=== PATIENT | male | born 1965 | race Caucasian/White ===

== ENCOUNTER 2016-10-15 10:55 | Emergency (ER) | payer SELFPAY ==
[2016-10-15 11:00] VITALS: BP 156/101; PULSE 103; TEMP 98.4; BMI 26.4
--- NOTE | 2016-10-15 11:38 | PDOC ---
History of Present Illness - General Chief Complaint: Toothache Stated Complaint: SWOLLEN FACE, EYE REDNESS Time Seen by Provider: 10/15/16 11:33 History Source: Patient Exam Limitations: No Limitations - History of Present Illness Initial Comments: 10/15/16 13:49 Chief complaint: Right eye tearing painful and bleeding around gum right upper tooth 10/15/16 13:50 History of present illness: Patient is a 51-year-old male with a history of an AK 2012, and a gastric ulcer here today complaining of intermittent bleeding around gum of his right central incisor for the last 4 days tenderness around gum. Patient also noticed slight facial's swelling on right side today. Patient denies any fever. Gum is not bleeding presently. Patient also reports having redness of his right eye with discomfort and tearing with photophobia for the last 4 days. Patient wears contact lenses does not have contact in his right eye presently. Patient denies getting anything in his eye or rubbing his right eye. Patient denies any visual changes. Timing/Duration: getting worse Modifying Factors: worse with: immobilization Associated Symptoms: reports: other (RIGHT EYE TEARING, PHOTOPHOBIA, 4 DAYS, PAINFUL, RT UPPER GUM BLEEDING WITH TENDERNESS TO AREA) Past History - Past Medical History Allergies/Adverse Reactions: Allergies Allergy/AdvReac Type Severity Reaction Status Date / Time No Known Allergies Allergy Verified 10/15/16 11:00 Home Medications: Ambulatory Orders Aspirin Coated [Ecotrin -] 81 mg PO DAILY #30 tablet.ec 07/20/14 Mag Carb/Al Hydrox/Alginic AC [Gaviscon Liquid] 30 mg PO PRN PRN #1 oral.susp Ranitidine [Zantac -] 150 mg PO BID #0 tablet 10/26/14 Penicillin V Potassium [Pen Vee K -] 500 mg PO QID #28 tablet 10/15/16 Tobramycin 0.3% Ophth Soln [Tobrex Ophthalmic Solution -] 2 drop OD Q6HPO #1 drops 10/15/16 Anemia: No Asthma: No Cancer: No Cardiac Disorders: Yes ("heart attack" 2012) CVA: No COPD: No CHF: No Dementia: No Diabetes: No GI Disorders: Yes (GASTRITIS/DUODENITIS BLEED 07/31) Disorders: No HTN: No Hypercholesterolemia: No Liver Disease: No Suicide Attempt (Hx): No Seizures: No Thyroid Disease: No - Surgical History Abdominal Surgery: No Appendectomy: No Cardiac Surgery: Yes (STENT PLACE 05/01) Cholecystectomy: No Lung Surgery: No Neurologic Surgery: No Orthopedic Surgery: No - Immunization History Td Vaccination: Yes Immunization Up to Date: Yes - Psycho/Social/Smoking Cessation Hx Anxiety: No Suicidal Ideation: No Smoking Status: Yes Smoking History: Never smoked Have you smoked in the past 12 months: No Number of Cigarettes Smoked Daily: 0 If you are a former smoker, when did you quit?: 2012 'Breaking Loose' booklet given: 05/10/12 Hx Alcohol Use: Yes (SOCIAL) Drug/Substance Use Hx: No Substance Use Type: None Hx Substance Use Treatment: No Review of Systems - Review of Systems Able to Perform ROS?: Yes HEENTM: Yes: Eye Pain (RT. EYE ), Tearing, Other (BLEEDING RT UPPER GUM RT. CENTRAL INCISOR WITH TENDERNESS OF AREA, ). No: Blurred Vision, Recent change in vision, Double Vision Respiratory: No: Symptoms reported Cardiac (ROS): No: Symptoms Reported ABD/GI: No: Symptoms Reported Musculoskeletal: No: Symptoms Reported Integumentary: Yes: Other (SLIGHT SWELLING RT. MAXILLA ) Neurological: No: Symptoms reported *Physical Exam - Vital Signs Last Vital Signs Temp Pulse Resp BP Pulse Ox 98.4 F 103 H 20 156/101 95 10/15/16 10:56 10/15/16 10:56 10/15/16 10:56 10/15/16 10:56 10/15/16 10:56 - Physical Exam General Appearance: Yes: Appropriately Dressed HEENT: positive: EOMI, [place], TMs Normal, Other (RT. UPPER CENTRAL INCISOR TENDERNESS WITH ERYTHEMA/SLIGHT EDEMA). negative: Pharyngeal Erythema, Tonsillar Exudate, Tonsillar Erythema, Nasal Congestion, Rhinorrhea, Sinus Tenderness, Orbits Neck: negative: Lymphadenopathy (R), Lymphadenopathy (L) Respiratory/Chest: positive: Lungs Clear, Normal Breath Sounds. 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 Patient also noticed slight facial's swelling on right side today. Patient denies any fever. Gum is not bleeding presently. Patient also reports having redness of his right eye with discomfort and tearing with photophobia for the last 4 days. Patient wears contact lenses does not have contact in his right eye presently. Patient denies getting anything in his eye or rubbing his right eye. Patient denies any visual changes. right eye corneal abrasion right gum abscess PLAN: PEN VK 500 MG QID FOR 7 DAYS TOBRAMYCIN 0.3% 2 drops rt. eye q 6 hr for 5 days had to be changed to Gentamycin 0.3% andrew 2 drops six times daily for 5 days due to tobramycin on back order pt. will follow up with his opthomoloogist Dr. Gurwinder Morales tomorrow for further eval and his dentist *DC/Admit/Observation/Transfer Diagnosis at time of Disposition: Gum abscess Corneal abrasion, right Qualifiers: Encounter type: initial encounter Qualified Code(s): S05.01XA - Injury of conjunctiva and corneal abrasion without foreign body, right eye, initial encounter - Discharge Dispostion Disposition: HOME Condition at time of disposition: Stable - Prescriptions Prescriptions: Penicillin V Potassium [Pen Vee K -] 500 mg PO QID #28 tablet Tobramycin 0.3% Ophth Soln [Tobrex Ophthalmic Solution -] 2 drop OD Q6HPO #1 drops - Patient Instructions Additional Instructions: FOLLOW UP TOMORROW WITH YOUR OPTHOMOLOGIST AND YOUR DENTIST FOR FURTHER EVALUATION RETURN TO EMERGENCY ROOM IF SYMPTOMS WORSEN OR NEW SYMPTOMS DEVELOP Eat only soft foods for next few days patient voiced understanding of discharge instructions and all questions were answered
[2016-10-15] MEDS ORDERED: TETRACAINE 0.5% OPHTH SOLN 2 ML BOTTLE ONE (12:05)
== END 2016-10-15 13:45 | disposition home or self-care (01) ==
LOC: JERFT 10:55
DX: K05.219 Aggressive periodontitis, localized, unspecified severity (principal); S05.01XA Injury of conjunctiva and corneal abrasion without foreign body, right eye, initial encounter; X58.XXXA Exposure to other specified factors, initial encounter; Y93.89 Activity, other specified; Y92.89 Other specified places as the place of occurrence of the external cause; I25.2 Old myocardial infarction; Z87.19 Personal history of other diseases of the digestive system
CPT/HCPCS: 99281-25

== ENCOUNTER 2018-07-12 06:44 | Inpatient (IN) | payer SELFPAY ==
[2018-07-12 07:13] VITALS: BMI 26.0
--- NOTE | 2018-07-12 07:52 | PDOC ---
History of Present Illness - General Chief Complaint: Pain, Acute Stated Complaint: PAIN,HERNIA Time Seen by Provider: 07/12/18 07:51 - History of Present Illness Initial Comments: 53yo M with PMH of CO s/p stent in 2012, GI bleed d/t erosive gastritis/ duodenitis in 2014 presenting with left groin pain and melena. Patient states he has had black stools since last Sunday. He only takes a baby aspirin at home. No BRBPR or hematemesis. No history of abdominal surgeries. Patient endorses heavy drinking history in the past, but only drinks 1-2 alcoholic drinks per day currently. He has not had a colonoscopy or endoscopy since he was discharged in 2014. Patient first noticed a left groin hernia last summer. He was in [facility] for travel around that time and was evaluated by a physician there. Recommended for surgery, but he did not follow up. Patient's hernia will expand intermittently, especially when he is standing. He is usually able to reduce the hernia on his own, but was unsuccessful this morning. It has been present since yesterday and he is endorsing 8/10 intermittent pain associated with it. He has taken no more than two tablets of advil or alleve at home for the pain. No nausea or vomiting. Last bowel movement was yesterday and was a black formed stool. No fevers, chills, chest pain, or shortness of breath. PCP: none Cardio: Dr. Alcantara (spelling per the patient) GI: does not remember Past History - Past Medical History Allergies/Adverse Reactions: Allergies Allergy/AdvReac Type Severity Reaction Status Date / Time No Known Allergies Allergy Verified 07/12/18 07:09 Home Medications: Ambulatory Orders Aspirin Coated [Ecotrin -] 81 mg PO DAILY #30 tablet.ec 07/20/14 Anemia: No Asthma: No Cancer: No Cardiac Disorders: Yes ("heart attack" 2012) CVA: No COPD: No CHF: No Dementia: No Diabetes: No GI Disorders: Yes (GASTRITIS/DUODENITIS BLEED 07/31) Disorders: No HTN: No Hypercholesterolemia: No Liver Disease: No Seizures: No Thyroid Disease: No - Surgical History Abdominal Surgery: No Appendectomy: No Cardiac Surgery: Yes (STENT PLACE 05/01) Cholecystectomy: No Lung Surgery: No Neurologic Surgery: No Orthopedic Surgery: No - Immunization History Td Vaccination: Yes Immunization Up to Date: No - Suicide/Smoking/Psychosocial Hx Smoking Status: Yes Smoking History: Former smoker Have you smoked in the past 12 months: No Number of Cigarettes Smoked Daily: 0 If you are a former smoker, when did you quit?: 2012 Information on smoking cessation initiated: No 'Breaking Loose' booklet given: 05/10/12 Hx Alcohol Use: No Drug/Substance Use Hx: No Substance Use Type: None Hx Substance Use Treatment: No Review of Systems - Review of Systems Comments:: Constitutional: no fever, no chills HEENT: no throat pain, no dysphagia Cardiovascular: no chest pain, no palpitations Respiratory: no cough, no shortness of breath Gastrointestinal: +abdominal pain, +melena Genitourinary: no dysuria, no frequency Musculoskeletal: no myalgia, no arthralgia Skin: no rash, no itching Neurologic: no headache, no weakness *Physical Exam - Vital Signs Last Vital Signs Temp Pulse Resp BP Pulse Ox 98.1 F 91 H 18 157/90 100 07/12/18 07:10 07/12/18 07:10 07/12/18 07:10 07/12/18 07:10 07/12/18 07:10 - Physical Exam Comments: General: Awake, alert, and fully oriented, in no acute distress Head: No signs of trauma Eyes: EOMI, sclera anicteric ENT: Moist mucus membranes Neck: Normal ROM, supple Lungs: Lungs clear, Normal breath sounds Cardio: Regular rhythm, S1 and S2 present Abdomen: Soft, nontender. No guarding, no rebound, no masses Left inguinal hernia with positive bowel sounds, unable to reduce Extremities: Normal range of motion, Distal pulses present SKIN: Warm, Dry, normal turgor Neurologic: Cranial nerves II through XII grossly intact. Normal speech Rectal: The skin is without erythema or induration. Skin tag present. No external hemorrhoids, fissures, warts, or discharge. Sphincter tone normal. There are no masses palpated on digital exam. ED Treatment Course - LABORATORY CBC & Chemistry Diagram: 07/12/18 15:00 07/12/18 08:17 Medical Decision Making - Medical Decision Making 53yo M with PMH of CO s/p stent in 2012, GI bleed d/t erosive gastritis/ duodenitis in 2014 presenting with left groin pain and melena. DDX including but not limited to GI bleed- upper vs lower, incarcerated hernia, reducible hernia, SBO Patient declining pain medicine FOBT positive Protonix drip and fluids ordered CBC WBC 3.4 K/mm3 (4.0-10.0) L 07/12/18 08:17 RBC 3.09 M/mm3 (4.00-5.60) L 07/12/18 08:17 Hgb 11.0 GM/dL (11.7-16.9) L 07/12/18 08:17 Hct 31.7 % (35.4-49) L D 07/12/18 08:17 MCV 102.6 fl (80-96) H 07/12/18 08:17 MCH 35.5 pg (25.7-33.7) H D 07/12/18 08:17 MCHC 34.6 g/dl (32.0-35.9) 07/12/18 08:17 RDW 13.1 % (11.9-15.9) D 07/12/18 08:17 Plt Count 129 K/MM3 (134-434) L D 07/12/18 08:17 MPV 7.3 fl (7.5-11.1) L D 07/12/18 08:17 Absolute Neuts (auto) 2.3 K/mm3 (1.5-8.0) 07/12/18 08:17 Neutrophils % 68.4 % (42.8-82.8) 07/12/18 08:17 Lymphocytes % 14.6 % (8-40) 07/12/18 08:17 Monocytes % 15.3 % (3.8-10.2) H 07/12/18 08:17 Eosinophils % 0.6 % (0-4.5) D 07/12/18 08:17 Basophils % 1.1 % (0-2.0) 07/12/18 08:17 Nucleated RBC % 0 % (0-0) 07/12/18 08:17 Hgb=11.0, however, previous values are from years ago. Unsure what is current baseline No leukocytosis CMP Sodium 136 mmol/L (136-145) 07/12/18 08:17 Potassium 4.6 mmol/L (3.5-5.1) 07/12/18 08:17 Chloride 101 mmol/L (98-107) 07/12/18 08:17 Carbon Dioxide 30 mmol/L (21-32) 07/12/18 08:17 Anion Gap 6 MMOL/L (8-16) L 07/12/18 08:17 BUN 8 mg/dL (7-18) 07/12/18 08:17 Creatinine 0.5 mg/dL (0.55-1.3) L 07/12/18 08:17 Creat Clearance w eGFR 173.94 (>60) 07/12/18 08:17 Random Glucose 104 mg/dL (74-106) 07/12/18 08:17 Calcium 8.9 mg/dL (8.5-10.1) 07/12/18 08:17 Total Bilirubin 1.5 mg/dL (0.2-1) H 07/12/18 08:17 AST 236 U/L (15-37) H 07/12/18 08:17 ALT 108 U/L (13-61) H 07/12/18 08:17 Alkaline Phosphatase 186 U/L (45-117) H 07/12/18 08:17 Troponin I < 0.02 ng/ml (0.00-0.05) 07/12/18 08:17 Total Protein 6.9 g/dl (6.4-8.2) 07/12/18 08:17 Albumin 3.2 g/dl (3.4-5.0) L 07/12/18 08:17 Lipase 441 U/L (73-393) H 07/12/18 08:17 Elevated liver enzymes Lipase elevated, but not >3xULN Tpn undetectable EKG: rate 73, QTc 427, NSR CTAP: Sequential axial images were obtained from the domes of the diaphragms through the symphysis pubis following the administration of intravenous contrast material. The lung bases are clear. The liver is normal in size. It is hypodense in texture consistent with diffuse fatty infiltration. No mass lesions identified within the liver. The spleen is enlarged measuring 15 cm in craniocaudad dimension. The pancreas, adrenal glands and kidneys demonstrate no significant abnormalities. The gallbladder is contracted. No calculi are identified. There is no evidence of intra-abdominal or retroperitoneal lymphadenopathy or fluid collections. There is no evidence of pneumoperitoneum, bowel obstruction or intra-abdominal abscess. There is no CT evidence of acute appendicitis or diverticulitis. Examination of the pelvis demonstrates no evidence of pelvic masses, fluid collections or lymphadenopathy. There is a left inguinal hernia that does contain a portion of the sigmoid colon. There is no evidence of bowel obstruction related to the hernia. The urinary bladder is somewhat thick-walled which may be accentuated by under filling. The prostate gland is not significantly enlarged. There is no evidence of acute bony pathology. IMPRESSION: 1. Diffuse fatty infiltration of liver. 2. Mild thyromegaly. 3. Left inguinal hernia containing a nonobstructed portion of the sigmoid colon. 4. No acute pathology within the abdomen or pelvis. Please see above discussion. Patient reports reducing his hernia. On repeat exam, hernia is less pronounced. Plan for admission for GI bleed 07/12/18 11:[address] Whipple who accepted patient for admission. Pending admitting physician's name. 07/12/18 12:[address] Pena. Order placed. *DC/Admit/Observation/Transfer Diagnosis at time of Disposition: GI bleed Qualifiers: GI bleed type/associated pathology: unspecified gastrointestinal hemorrhage type Qualified Code(s): K92.2 - Gastrointestinal hemorrhage, unspecified - Discharge Dispostion Condition at time of disposition: Guarded Decision to Admit order: Yes - Referrals - Patient Instructions - Post Discharge Activity
--- NOTE | 2018-07-12 08:26 | PDOC ---
Attending Attestation - Resident Resident Name: Jessica Colon - ED Attending Attestation I have performed the following: I have examined & evaluated the patient, The case was reviewed & discussed with the resident, I agree w/resident's findings & plan, Exceptions are as noted - HPI HPI: 53 yo M history AR s/p stents, prior GIB, EtOH use presents with 6 days of black stools. Denies pepto/iron supplement use. He also notes that his hernia is painful today. He states that usually he can push it back in himself, but today he had difficulty. He is uncertain how long it has been out. Able to defecate and pass gas. Denies abd pain. - Physicial Exam PE: GENERAL: Awake, alert, and fully oriented, in no acute distress HEAD: No signs of trauma EYES: PERRLA, EOMI, sclera anicteric, conjunctiva clear ENT: Auricles normal inspection, hearing grossly normal, nares patent, oropharynx clear without exudates. Moist mucosa NECK: Normal ROM, supple, no lymphadenopathy, JVD, or masses LUNGS: Breath sounds equal, clear to auscultation bilaterally. No wheezes, and no crackles HEART: Regular rate and rhythm, normal S1 and S2, no murmurs, rubs or gallops ABDOMEN: Soft, nontender, normoactive bowel sounds. No guarding, no rebound. No masses EXTREMITIES: Normal range of motion, no edema. No clubbing or cyanosis. No cords, erythema, or tenderness NEUROLOGICAL: Cranial nerves II through XII grossly intact. Normal speech, normal gait. Motor and sensation intact SKIN: Warm, Dry, normal turgor, no rashes or lesions noted. : +Large L inguinal hernia, not easily reducible due to pain. - Medical Decision Making Will treat and admit if guaiac is positive. Will CT the hernia to r/o entrapment as it is unclear how long it has been out and it is difficult to reduce. Will also give analgesia. If hernia is not entrapped, will attempt to reduce after analgesia in ED.
[2018-07-12 09:17] LABS: BASO % 1.1 % (0-2.0); EOS % 0.6 % (0-4.5); HEMATOCRIT 31.7 % (35.4-49); LYMPH % 14.6 % (8-40); MCH 35.5 pg (25.7-33.7); MCHC 34.6 g/dl (32.0-35.9); MEAN CELL VOLUME 102.6 fl (80-96); MEAN PLT VOLUME 7.3 fl (7.5-11.1); MONO % 15.3 % (3.8-10.2); NEUT % 68.4 % (42.8-82.8); PLATELET COUNT 129 K/MM3 (134-434); RBC 3.09 M/mm3 (4.00-5.60); RDW 13.1 % (11.9-15.9); WHITE BLOOD COUNT 3.4 K/mm3 (4.0-10.0)
[2018-07-12 09:34] LABS: INR 1.1 (0.83-1.09)
[2018-07-12 09:37] LABS: ACTIVATED PTT 33.5 SECONDS (25.2-36.5)
[2018-07-12 09:49] LABS: ALBUMIN 3.2 g/dl (3.4-5.0); ALK PHOS 186 U/L (45-117); ANION GAP 6 MMOL/L (8-16); BILIRUBIN,TOTAL 1.5 mg/dL (0.2-1); BLOOD UREA NITROGEN 8 mg/dL (7-18); CALCIUM 8.9 mg/dL (8.5-10.1); CHLORIDE 101 mmol/L (98-107); CO2 30 mmol/L (21-32); CREATININE 0.5 mg/dL (0.55-1.3); GLUCOSE,RANDOM 104 mg/dL (74-106); LIPASE 441 U/L (73-393); POTASSIUM 4.6 mmol/L (3.5-5.1); SGOT/AST 236 U/L (15-37); SGPT/ALT 108 U/L (13-61); SODIUM 136 mmol/L (136-145); TOT PROT 6.9 g/dl (6.4-8.2)
[2018-07-12] MEDS ORDERED: SODIUM CHLORIDE 1,000 ML IV STA (10:09)
[2018-07-12] MEDS ORDERED: PANTOPRAZOLE SODIUM 80 MG in SODIUM CHLORIDE 100 ML IVPB SCH (10:15)
[2018-07-12] MEDS ORDERED: PANTOPRAZOLE SODIUM 40 MG VIAL ONE (10:21)
[2018-07-12] MEDS ORDERED: FOLIC ACID 1 MG TABLET (FP) PO SCH (13:00)
--- NOTE | 2018-07-12 13:11 | HP ---
CHIEF COMPLAINT: Melena; lower abdominal pain PCP: Brian Painter Maintenance: Dr. Alcantara GI: (seen prior by Dr. Rueda and Dr. Mcdonald) HISTORY OF PRESENT ILLNESS: 53yo M with h/o CAD s/p PCI stenting, and prior GI bleed who presents today for LLQ abdominal pain and dark stools. Pt reports he's been suffering from dark stools since Sunday, however the reason he came in today was that he developed LLQ pain after he was unable to reduce his hernia. Normally, he is able to freely reduce his hernia and does not have pain associated with it. He states that within the past week he had an episode of sudden sharp pain which resolved, however today he noticed the pain once more and he could not reduce his hernia. Currently, pt's hernia is now freely reducible as he was able to reduce it right before his CT scan in the ER. His darkened stool has persisted without any alexander hematochezia or any blood upon wiping. Pt reports his stools have been normal caliber and quality without any episodes of constipation. He admits to continued alcohol use, however he reports his drinking has "lightened up" to only 1-2 beers daily. Pt denies any Pepto-Bismol use and only takes ASA 81mg daily for his coronary stent. Pt denies any headaches, lightheadedness, dizziness, pallor, clouding of sensation, shortness of breath, chest pain/ discomfort, palpitations, diarrhea, constipation, f/c/n/v, dysuria, hematuria, polyuria, prior bleeding disorders, prior hypercoaguability disorders, and AC use. Of note, in 2014, pt received endoscopy which revealed gastropathy and esophageal varices without any intervention at that time for his melena. Recent Travel: Denies PAST MEDICAL HISTORY: CAD s/p PCI Prior GI hemorrhage (2014; resolved without intervention; esophageal varices and erosive gastritis noted) PAST SURGICAL HISTORY: PCI coronary intervention Social History: Smoking: Denies Alcohol: previously 12 beers per day; currently 1-2 beers daily (for past 3 years) Drugs: Denies Lives at home with girlfriend Family History: Allergies No Known Allergies Allergy (Verified 07/12/18 07:09) HOME MEDICATIONS: Home Medications Medication Instructions Recorded Aspirin Coated [Ecotrin -] 81 mg PO DAILY #30 tablet.ec 07/20/14 REVIEW OF SYSTEMS As per HPI PHYSICAL EXAMINATION Vital Signs - 24 hr 07/12/18 07:10 Temperature 98.1 F Pulse Rate 91 H Respiratory 18 Rate Blood Pressure 157/90 O2 Sat by Pulse 100 Oximetry (%) GENERAL: NAD, awake, alert, and fully oriented HEENT: NC/AT, EOMI, DEREK, no scleral icterus noted, no conjunctival or mucosal pallor, MMM NECK: No JVD, no thyromegaly appreciated on exam, no thryoid nodules appreciated LUNGS: CTA bilaterally. No wheezes, and no crackles. No accessory muscle use. HEART: RRR, normal S1 and S2 without murmur appreciated ABDOMEN: Soft, nondistended, no caput medusa noted, no overlying skin changes, normoactive BS, TTP overlying L sided inguinal ligament only, hepatomegaly 1-2 fingerwidth below ribs, no splenomegaly appreciated, L inguinal hernia noted with reproducibility and minimal pain. No asterixis RECTAL: Internal hemorrhoids noted w/o external masses, soft darkened stool, prostate smooth, no alexander blood noted EXTREMITIES: 2+ DP pulses, No calf tenderness. No peripheral edema. PSYCHIATRIC: Cooperative. Good eye contact. Appropriate mood and affect. SKIN: Warm, dry, no rashes or lesions noted Laboratory Results 07/12/18 07/12/18 07/12/18 08:17 08:17 08:17 WBC 3.4 L RBC 3.09 L Hgb 11.0 L Hct 31.7 L D MCV 102.6 H MCH 35.5 H D MCHC 34.6 RDW 13.1 D Plt Count 129 L D MPV 7.3 L D Absolute Neuts (auto) 2.3 Neutrophils % 68.4 Lymphocytes % 14.6 Monocytes % 15.3 H Eosinophils % 0.6 D Basophils % 1.1 Nucleated RBC % 0 PT with INR 13.00 INR 1.10 H PTT (Actin FS) 33.5 Sodium Potassium Chloride Carbon Dioxide Anion Gap BUN Creatinine Creat Clearance w eGFR Random Glucose Calcium Total Bilirubin AST ALT Alkaline Phosphatase Troponin I Total Protein Albumin Lipase Stool Occult Blood Blood Type O POSITIVE Antibody Screen Negative 07/12/18 07/12/18 08:17 08:17 WBC RBC Hgb Hct MCV MCH MCHC RDW Plt Count MPV Absolute Neuts (auto) Neutrophils % Lymphocytes % Monocytes % Eosinophils % Basophils % Nucleated RBC % PT with INR INR PTT (Actin FS) Sodium 136 Potassium 4.6 Chloride 101 Carbon Dioxide 30 Anion Gap 6 L BUN 8 Creatinine 0.5 L Creat Clearance w eGFR 173.94 Random Glucose 104 Calcium 8.9 Total Bilirubin 1.5 H AST 236 H ALT 108 H Alkaline Phosphatase 186 H Troponin I < 0.02 Total Protein 6.9 Albumin 3.2 L Lipase 441 H Stool Occult Blood Positive Blood Type Antibody Screen ASSESSMENT/PLAN: Melena 2/2 to possible variceal bleed vs. erosive esophagitis Macrocytic anemia Transaminitis Chronic alcohol use Thrombocytopenia L inguinal hernia CAD s/p PCI stenting --Bleed likely variceal in nature vs. erosive esophagitis from ASA use combined with alcohol use --Will monitor H/H --Repeat CBC at 4pm today --Transfusion threshold <8.0 or active symptoms given cardiac disease --Protonix 40mg IVP BID --NPO for now --GI consulted for likely endoscopy --Discussed necessity of alcohol cessation with increasing LFTs and erosive gastritis --CT A/P reviewed --Elevated lipase nonconcerning in absence of symptoms and normal pancreas on CT --Will monitor LFTs currently and avoid hepatotoxic medications --Macrocytosis likely 2/2 to B12/folate/thiamine deficiency 2/2 to alcohol use --B12 and folate ordered with AM labs --Folic acid and thiamine supplementation ordered once --Hernia freely reducible now and will be outpatient surgical consultation given stability --Will have to continue ASA 81mg PO daily due to pt's coronary stenting performed in 2012. Risk of stent occlusion outweighs continue bleeding risk at this time. FEN: Fluids: Maintence fluid while NPO Electrolyte abnormalities: None currently; check Mg and Phos with AM labs Nutrition: NPO for now PPX: DVT - SCDs for now GI - Protonix BID for now and can step down to daily if H/H stabilizes GOC: Full Code Dispo: M/S observation; if intervention can upgrade to admission Case discussed with Dr. Jean Whipple, DO - IM PGY-2 Visit type - Emergency Visit Emergency Visit: Yes ED Registration Date: 07/12/18 Care time: The patient presented to the Emergency Department on the above date and was hospitalized for further evaluation of their emergent condition. - New Patient This patient is new to me today: Yes Date on this admission: 07/12/18 - Critical Care Critical Care patient: No
[2018-07-12] MEDS ORDERED: FOLIC ACID 1 MG TABLET (FP) ONE (13:34)
[2018-07-12] MEDS ORDERED: THIAMINE HCL 100 MG TABLET (FP) ONE (13:34)
[2018-07-12] MEDS: THIAMINE HCL 100 MG TABLET (FP) PO SCH (13:35)
--- NOTE | 2018-07-12 14:16 | CON.GI ---
Consult Consult Specialty:: Gastroenterology Referred by:: Dr. Edgardo Whipple Reason for Consultation:: melena - History of Present Illness Chief Complaint: black stool since Sunday and hernia pain History of Present Illness: 53M has had black soft stool daily since Sunday but came to the ER because of pain at his left inguinal hernia. He is a [place]. The hernia was previously diagnosed in [facility]. He denies hematemesis or dysphagia. He drinks several beers daily. He had a coronary stent placed at [facility] in 2012 after suffering an NH. He has no PMD. An EGD on 07/20/14 for melena revealed antral gastritis and duodenitis but no varices. Repeat EGD on 10/26/14 for persistent pain revealed that his gastritis was more likely portal gastropathy. He was advised to stop his alcohol intake but did not comply. Colonoscopy on 07/20/14 revealed mild universal diverticulosis and hemorrhoids. - History Source History Provided By: Patient Limitations to Obtaining History: No Limitations - Past Medical History Cardio/Vascular: Yes: CAD (coronary stenting 2012 Dr Ye), HTN, NH Gastrointestinal: Yes: Diverticulosis, Gastritis (2014 EGDs revealed gastritis/ duodenitis, felt to be portal gastropathy on 2nd exam), GI Bleed (2014 revealed portal gastropathy), Other (symptomatic left inguinal hernia) Hepatobiliary: Yes: Other (alcoholic hepatitis) - Past Surgical History Additional Surgical History: Varicocele surgery - Alcohol/Substance Use Hx Alcohol Use: Yes (several beers daily, down from a six pack) History of Substance Use: reports: None - Smoking History Smoking history: Former smoker Have you smoked in the past 12 months: No Aproximately how many cigarettes per day: 0 If you are a former smoker, when did you quit?: 2012 - Social History Usual Living Arrangement: With Spouse ADL: Independent 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 Place of : [facility] History of Recent Travel: No Home Medications - Allergies Allergies/Adverse Reactions: Allergies Allergy/AdvReac Type Severity Reaction Status Date / Time No Known Allergies Allergy Verified 07/12/18 07:09 - Home Medications Home Medications: Ambulatory Orders Aspirin Coated [Ecotrin -] 81 mg PO DAILY #30 tablet.ec 07/20/14 Family Disease History - Family Disease History Family Disease History: Heart Disease: Mother (s/p ppm), Other: Father ( Alzheimer's, Parkinson's, 93), Brother (healthy and living), Sister ( healthy and living) Other Family History: uncle had lung cancer Review of Systems - Review of Systems Constitutional: reports: No Symptoms Eyes: reports: No Symptoms HENT: reports: No Symptoms Neck: reports: No Symptoms Cardiovascular: reports: No Symptoms Respiratory: reports: No Symptoms Gastrointestinal: reports: Abdominal Pain (left inguinal), Melena (since Sunday) Physical Exam-GI Vital Signs: Vital Signs Temperature 98.1 F 07/12/18 07:10 Pulse Rate 91 H 07/12/18 07:10 Respiratory Rate 18 07/12/18 07:10 Blood Pressure 157/90 07/12/18 07:10 O2 Sat by Pulse Oximetry (%) 100 07/12/18 07:10 CBC,CMP WBC 3.4 K/mm3 (4.0-10.0) L 07/12/18 08:17 RBC 3.09 M/mm3 (4.00-5.60) L 07/12/18 08:17 Hgb 11.0 GM/dL (11.7-16.9) L 07/12/18 08:17 Hct 31.7 % (35.4-49) L D 07/12/18 08:17 MCV 102.6 fl (80-96) H 07/12/18 08:17 MCH 35.5 pg (25.7-33.7) H D 07/12/18 08:17 MCHC 34.6 g/dl (32.0-35.9) 07/12/18 08:17 RDW 13.1 % (11.9-15.9) D 07/12/18 08:17 Plt Count 129 K/MM3 (134-434) L D 07/12/18 08:17 MPV 7.3 fl (7.5-11.1) L D 07/12/18 08:17 Absolute Neuts (auto) 2.3 K/mm3 (1.5-8.0) 07/12/18 08:17 Neutrophils % 68.4 % (42.8-82.8) 07/12/18 08:17 Lymphocytes % 14.6 % (8-40) 07/12/18 08:17 Monocytes % 15.3 % (3.8-10.2) H 07/12/18 08:17 Eosinophils % 0.6 % (0-4.5) D 07/12/18 08:17 Basophils % 1.1 % (0-2.0) 07/12/18 08:17 Nucleated RBC % 0 % (0-0) 07/12/18 08:17 Sodium 136 mmol/L (136-145) 07/12/18 08:17 Potassium 4.6 mmol/L (3.5-5.1) 07/12/18 08:17 Chloride 101 mmol/L (98-107) 07/12/18 08:17 Carbon Dioxide 30 mmol/L (21-32) 07/12/18 08:17 Anion Gap 6 MMOL/L (8-16) L 07/12/18 08:17 BUN 8 mg/dL (7-18) 07/12/18 08:17 Creatinine 0.5 mg/dL (0.55-1.3) L 07/12/18 08:17 Creat Clearance w eGFR 173.94 (>60) 07/12/18 08:17 Random Glucose 104 mg/dL (74-106) 07/12/18 08:17 Calcium 8.9 mg/dL (8.5-10.1) 07/12/18 08:17 Total Bilirubin 1.5 mg/dL (0.2-1) H 07/12/18 08:17 AST 236 U/L (15-37) H 07/12/18 08:17 ALT 108 U/L (13-61) H 07/12/18 08:17 Alkaline Phosphatase 186 U/L (45-117) H 07/12/18 08:17 Troponin I < 0.02 ng/ml (0.00-0.05) 07/12/18 08:17 Total Protein 6.9 g/dl (6.4-8.2) 07/12/18 08:17 Albumin 3.2 g/dl (3.4-5.0) L 07/12/18 08:17 Lipase 441 U/L (73-393) H 07/12/18 08:17 Current Medications Generic Name Dose Route Start Last Admin Trade Name Freq PRN Reason Stop Dose Admin Aspirin 81 mg 07/13/18 10:00 Ecotrin - PO DAILY SHELLY Folic Acid 1 mg 07/12/18 13:00 07/12/18 13:35 Folic Acid - PO 1 mg DAILY SHELLY Administration Pantoprazole Sodium 80 mg/ 100 mls @ 10 mls/hr 07/12/18 14:15 Sodium Chloride IVPB Q10H SHELLY 8 MG/HR Thiamine HCl 100 mg 07/12/18 13:15 07/12/18 13:35 Vitamin B1 - PO 100 mg DAILY SHELLY Administration Constitutional: Yes: Calm Eyes: Yes: Conjunctiva Clear HENT: Yes: Atraumatic Neck: Yes: Supple Cardiovascular: Yes: Tachycardia Respiratory: Yes: CTA Bilaterally Gastrointestinal Inspection: Yes: Hernia (reducible slightly tender left inguinal hernia) ...Auscultate: Yes: Normoactive Bowel Sounds ...Palpate: Yes: Soft, Tenderness (slightly tender reducible left inguinal hernia), Other ...Rectal Exam: Yes: Deferred (as patient is in the hallway. Already done by Dr. Whipple who reports g positive melena) Edema: No Neurological: Yes: Alert, Oriented Labs: CBC, BMP 07/12/18 08:17 07/12/18 08:17 INR, PTT INR 1.10 (0.83-1.09) H 07/12/18 08:17 Problem List - Problems (1) Alcoholic hepatitis Code(s): K70.10 - ALCOHOLIC HEPATITIS WITHOUT ASCITES (2) Diverticulosis Code(s): K57.90 - DVRTCLOS OF INTEST, PART UNSP, W/O PERF OR ABSCESS W/O BLEED (3) Stented coronary artery Code(s): Z95.5 - PRESENCE OF CORONARY ANGIOPLASTY IMPLANT AND GRAFT (4) History of myocardial infarction Code(s): I25.2 - OLD MYOCARDIAL INFARCTION (5) Left inguinal hernia Code(s): K40.90 - UNIL INGUINAL HERNIA, W/O OBST OR GANGR, NOT SPCF RECUR (6) GI bleeding Code(s): K92.2 - GASTROINTESTINAL HEMORRHAGE, UNSPECIFIED Qualifiers: GI bleed type/associated pathology: unspecified gastrointestinal hemorrhage type Qualified Code(s): K92.2 - Gastrointestinal hemorrhage, unspecified (7) Abnormal LFTs Code(s): R79.89 - OTHER SPECIFIED ABNORMAL FINDINGS OF BLOOD CHEMISTRY (8) ETOH abuse Code(s): F10.10 - ALCOHOL ABUSE, UNCOMPLICATED Assessment/Plan Impression Melena due to alcoholic gastritis, portal gastropathy or ulcer bleeding. Doubt variceal bleed given the duration Alcoholic gastritis with AST> ALT Alcoholism Symptomatic left inguinal hernia Plan: Serial CBCs and LFTs Pantoprazole drip. If brisker bleeding ensues would start Octreotide Librium detox regimen - discussed with Dr. Whipple who will implement it I have discussed EGD and it's potential adverse effects such as perforation and hemorrhage with Marquise. He has signed an informed consent. Unfortunately he just drank an entire glass of water so I can't do it immediately. I have scheduled it for Sunday but Dr. Elo Guerra will be covering should it need to be done sooner. Surgical consultation for the hernia Hepatitis evaluation
[2018-07-12] MEDS: diazePAM 5 MG TABLET PO SCH ×2 (15:00→21:55)
[2018-07-12] MEDS: PANTOPRAZOLE SODIUM 80 MG in SODIUM CHLORIDE 100 ML IVPB SCH ×2 (15:44→21:52)
[2018-07-12 15:58] LABS: HEMATOCRIT 30.3 % (35.4-49); HEMOGLOBIN 10.6 GM/dL (11.7-16.9); MCH 35.7 pg (25.7-33.7); MCHC 34.9 g/dl (32.0-35.9); MEAN CELL VOLUME 102.3 fl (80-96); MEAN PLT VOLUME 7.6 fl (7.5-11.1); PLATELET COUNT 129 K/MM3 (134-434); RBC 2.96 M/mm3 (4.00-5.60); RDW 12.9 % (11.9-15.9); WHITE BLOOD COUNT 3.8 K/mm3 (4.0-10.0)
--- NOTE | 2018-07-12 16:50 | PN ---
Teaching Attending Note Name of Resident: Edgardo Whipple ATTENDING PHYSICIAN STATEMENT I saw and evaluated the patient. I reviewed the resident's note and discussed the case with the resident. I agree with the resident's findings and plan as documented. SUBJECTIVE: Left inguinal pain OBJECTIVE: Vital Signs Temperature 98.1 F 07/12/18 15:39 Pulse Rate 91 H 07/12/18 15:39 Respiratory Rate 18 07/12/18 15:39 Blood Pressure 157/90 07/12/18 15:39 O2 Sat by Pulse Oximetry (%) 96 07/12/18 15:39 HEENT: Mm moist, no anemia NECK: No JVD No Bruit, No Jaundivce NECK: No JVD No bruit CHEST: CTA B/L CVS; s1S2 R ABD: mild epigastric tenderness, Left Inguinal Hernia EXT: no alanna afeet, no calf tenderness GEOPHYSICS SCIENTIST: AOX3 non focal CBC,CMP WBC 3.8 K/mm3 (4.0-10.0) L 07/12/18 15:00 RBC 2.96 M/mm3 (4.00-5.60) L 07/12/18 15:00 Hgb 10.6 GM/dL (11.7-16.9) L 07/12/18 15:00 Hct 30.3 % (35.4-49) L 07/12/18 15:00 MCV 102.3 fl (80-96) H 07/12/18 15:00 MCH 35.7 pg (25.7-33.7) H 07/12/18 15:00 MCHC 34.9 g/dl (32.0-35.9) 07/12/18 15:00 RDW 12.9 % (11.9-15.9) 07/12/18 15:00 Plt Count 129 K/MM3 (134-434) L 07/12/18 15:00 MPV 7.6 fl (7.5-11.1) 07/12/18 15:00 Absolute Neuts (auto) 2.3 K/mm3 (1.5-8.0) 07/12/18 08:17 Neutrophils % 68.4 % (42.8-82.8) 07/12/18 08:17 Lymphocytes % 14.6 % (8-40) 07/12/18 08:17 Monocytes % 15.3 % (3.8-10.2) H 07/12/18 08:17 Eosinophils % 0.6 % (0-4.5) D 07/12/18 08:17 Basophils % 1.1 % (0-2.0) 07/12/18 08:17 Nucleated RBC % 0 % (0-0) 07/12/18 08:17 Sodium 136 mmol/L (136-145) 07/12/18 08:17 Potassium 4.6 mmol/L (3.5-5.1) 07/12/18 08:17 Chloride 101 mmol/L (98-107) 07/12/18 08:17 Carbon Dioxide 30 mmol/L (21-32) 07/12/18 08:17 Anion Gap 6 MMOL/L (8-16) L 07/12/18 08:17 BUN 8 mg/dL (7-18) 07/12/18 08:17 Creatinine 0.5 mg/dL (0.55-1.3) L 07/12/18 08:17 Creat Clearance w eGFR 173.94 (>60) 07/12/18 08:17 Random Glucose 104 mg/dL (74-106) 07/12/18 08:17 Calcium 8.9 mg/dL (8.5-10.1) 07/12/18 08:17 Total Bilirubin 1.5 mg/dL (0.2-1) H 07/12/18 08:17 AST 236 U/L (15-37) H 07/12/18 08:17 ALT 108 U/L (13-61) H 07/12/18 08:17 Alkaline Phosphatase 186 U/L (45-117) H 07/12/18 08:17 Troponin I < 0.02 ng/ml (0.00-0.05) 07/12/18 08:17 Total Protein 6.9 g/dl (6.4-8.2) 07/12/18 08:17 Albumin 3.2 g/dl (3.4-5.0) L 07/12/18 08:17 Lipase 441 U/L (73-393) H 07/12/18 08:17 ASSESSMENT AND PLAN: 53 yrs old man a CAD s/p stent on ASA (04/2012)present to Ed transferred to [facility] Trop 4.[address] elevation) , ETOH abuse, ETOH induced liver disease, Upper GI bleed in 2014 s/p EGD and colonoscopy , EGD shows erosive gastritis present with C/O Left inguinal pain as he couldn't , reduced the hernia, came to Ed for evaluation, some how hernia reduced and remained reduced, patient also c/o melena started on Sunday, black stool but hard in consistency, last Bm was yesterday, currently not following with GI, cardiology or PCP, takes ASA 81 mg daily, stool occult blood +, patiet is hemodynamically stable and H/h at base line.. last drink was 2 days ago. Problem List - Problems (1) GI bleeding Assessment/Plan: present with melena H/O portal gastropathy , last melen awas few days ago IV PI , clear liquid, GI consulted scheduled EGD on , type and scree f/u serial H /h Code(s): K92.2 - GASTROINTESTINAL HEMORRHAGE, UNSPECIFIED Qualifiers: GI bleed type/associated pathology: unspecified gastrointestinal hemorrhage type Qualified Code(s): K92.2 - Gastrointestinal hemorrhage, unspecified (2) Alcoholic hepatitis Assessment/Plan: F/U serial LFTs and Hepatitis w/u Code(s): K70.10 - ALCOHOLIC HEPATITIS WITHOUT ASCITES (3) Stented coronary artery Assessment/Plan: not on any anti anginal EKG is unremarkable, unlimited ET will F/U clinically off ASA as present with GI bleed. Code(s): Z95.5 - PRESENCE OF CORONARY ANGIOPLASTY IMPLANT AND GRAFT (4) ETOH abuse Assessment/Plan: Observe for DTSm, cont thiamine, Folic acid , observe for DTs, Librium protocol. Code(s): F10.10 - ALCOHOL ABUSE, UNCOMPLICATED (5) Left inguinal hernia Assessment/Plan: non strangulated Code(s): K40.90 - UNIL INGUINAL HERNIA, W/O OBST OR GANGR, NOT SPCF RECUR (6) Pancreatitis Assessment/Plan: ETOH induced F/U serial liapse level. Code(s): K85.90 - ACUTE PANCREATITIS WITHOUT NECROSIS OR INFECTION, UNSP
[2018-07-12] MEDS: diazePAM 5 MG TABLET PO PRN (19:06)
[2018-07-12] MEDS ORDERED: PT OWN MED DRAWER 7, Y5N ONE (20:24)
[2018-07-12] MEDS ORDERED: PANTOPRAZOLE SODIUM 40 MG VIAL IVPUSH SCH (22:00)
[2018-07-13] MEDS: PANTOPRAZOLE SODIUM 80 MG in SODIUM CHLORIDE 100 ML IVPB SCH ×5 (00:15→21:48)
[2018-07-13 01:18] LABS: HEMATOCRIT 29.2 % (35.4-49); HEMOGLOBIN 10.2 GM/dL (11.7-16.9); MCH 35.9 pg (25.7-33.7); MCHC 34.7 g/dl (32.0-35.9); MEAN CELL VOLUME 103.3 fl (80-96); MEAN PLT VOLUME 8.1 fl (7.5-11.1); PLATELET COUNT 128 K/MM3 (134-434); RBC 2.83 M/mm3 (4.00-5.60); RDW 13.3 % (11.9-15.9); WHITE BLOOD COUNT 3.4 K/mm3 (4.0-10.0)
[2018-07-13] MEDS: diazePAM 5 MG TABLET PO SCH ×3 (06:11→21:48)
[2018-07-13] MEDS ORDERED: PT OWN MED DRAWER 7, Y5N ONE (07:35)
--- NOTE | 2018-07-13 07:42 | PN.GI ---
GI Progress Note Subjective: no new complaints - denies abd pain / melena / brbr - feeling better - Objective Vital Signs: Vital Signs Temperature 99.0 F 07/13/18 06:42 Pulse Rate 90 07/13/18 06:42 Respiratory Rate 20 07/13/18 06:42 Blood Pressure 138/66 07/13/18 06:42 O2 Sat by Pulse Oximetry (%) 96 07/12/18 23:00 Constitutional: Well Nourished Eyes: Yes: WNL HENT: Yes: WNL Neck: Yes: WNL Cardiovascular: Yes: WNL Respiratory: Yes: WNL Gastrointestinal Inspection: Yes: WNL ...Auscultate: Yes: Normoactive Bowel Sounds Musculoskeletal: Yes: WNL Extremities: Yes: WNL Edema: No Labs: CBC, BMP 07/13/18 00:50 07/12/18 08:17 INR, PTT INR 1.10 (0.83-1.09) H 07/12/18 08:17 Problem List - Problems (1) Alcoholic hepatitis Assessment/Plan: trend lft while hospitalized mitochondrial disorders counselor etoh abstinence Code(s): K70.10 - ALCOHOLIC HEPATITIS WITHOUT ASCITES (2) GI bleeding Assessment/Plan: h/h stable ; trend daily while hospitalized ppi 40 mg po qd diet as tolerated npo midnight on Sunday for diagnostic egd on Sunday Code(s): K92.2 - GASTROINTESTINAL HEMORRHAGE, UNSPECIFIED Qualifiers: GI bleed type/associated pathology: unspecified gastrointestinal hemorrhage type Qualified Code(s): K92.2 - Gastrointestinal hemorrhage, unspecified (3) Left inguinal hernia Code(s): K40.90 - UNIL INGUINAL HERNIA, W/O OBST OR GANGR, NOT SPCF RECUR
--- NOTE | 2018-07-13 08:13 | PN ---
Progress Note, Physician Chief Complaint: Comfortable not complaints History of Present Illness: 53 yrs old man a CAD s/p stent on ASA (04/2012)present to Ed transferred to [facility] Trop 4.[address] elevation) , ETOH abuse, ETOH induced liver disease, Upper GI bleed in 2014 s/p EGD and colonoscopy , EGD shows erosive gastritis present with C/O Left inguinal pain as he couldn't , reduced the hernia, came to Ed for evaluation, some how hernia reduced and remained reduced, patient also c/o melena started on Sunday, black stool but hard in consistency, last Bm was yesterday, currently not following with GI, cardiology or PCP, takes ASA 81 mg daily, stool occult blood +, patiet is hemodynamically stable and H/h at base line.. last drink was 2 days ago. - Current Medication List Current Medications: Active Medications Aspirin (Ecotrin -) 81 mg PO DAILY [facility] Diazepam (Valium -) 5 mg PO 1400,2200 [facility] Stop: 07/13/18 22:01 Diazepam (Valium -) 5 mg PO ONCE ONE Stop: 07/14/18 06:01 Diazepam (Valium -) 10 mg PO Q4H PRN PRN Reason: WITHDRAWAL(CONT SUBST) Stop: 07/15/18 14:33 Last Admin: 07/12/18 19:06 Dose: 10 mg Pantoprazole Sodium 80 mg/ (Sodium Chloride) 100 mls @ 10 mls/hr IVPB Q10H [facility] Last Admin: 07/13/18 00:15 Dose: Not Given Thiamine HCl (Vitamin B1 -) 100 mg PO DAILY [facility] Last Admin: 07/12/18 13:35 Dose: 100 mg - Objective Vital Signs: Vital Signs Temperature 99.0 F 07/13/18 06:42 Pulse Rate 90 07/13/18 06:42 Respiratory Rate 20 07/13/18 06:42 Blood Pressure 138/66 07/13/18 06:42 O2 Sat by Pulse Oximetry (%) 96 07/12/18 23:00 HEENT: Mm moist, no anemia NECK: No JVD No Bruit, No Jaundice NECK: No JVD No bruit CHEST: CTA B/L CVS; s1S2 R ABD: mild epigastric tenderness, Left Inguinal Hernia EXT: no edema feet, no calf tenderness DICE SPOTTER: AOX3 non focal Labs: INR, PTT INR 1.10 (0.83-1.09) H 07/12/18 08:17 CBC, BMP 07/13/18 07:00 07/13/18 07:00 Problem List - Problems (1) GI bleeding Assessment/Plan: h/O erosive gastritis present with melena on ASA last episode 2 days ago evaluted by the GO, schedule for EGD cont PPI advanced regular diet as patient is asymptomatic F/U H?H Code(s): K92.2 - GASTROINTESTINAL HEMORRHAGE, UNSPECIFIED Qualifiers: GI bleed type/associated pathology: unspecified gastrointestinal hemorrhage type Qualified Code(s): K92.2 - Gastrointestinal hemorrhage, unspecified (2) Alcoholic hepatitis Assessment/Plan: F/U serial LFTs and Hepatitis w/u Code(s): K70.10 - ALCOHOLIC HEPATITIS WITHOUT ASCITES (3) Stented coronary artery Assessment/Plan: not on any anti anginal EKG is unremarkable, unlimited ET will F/U clinically off ASA as present with GI bleed. Code(s): Z95.5 - PRESENCE OF CORONARY ANGIOPLASTY IMPLANT AND GRAFT (4) ETOH abuse Assessment/Plan: Observe for DTSm, cont thiamine, Folic acid , observe for DTs, Librium protocol. Code(s): F10.10 - ALCOHOL ABUSE, UNCOMPLICATED (5) Left inguinal hernia Assessment/Plan: non strangulated Code(s): K40.90 - UNIL INGUINAL HERNIA, W/O OBST OR GANGR, NOT SPCF RECUR (6) Pancreatitis Assessment/Plan: ETOH induced F/U serial lipase level. Code(s): K85.90 - ACUTE PANCREATITIS WITHOUT NECROSIS OR INFECTION, UNSP (7) Hypokalemia Assessment/Plan: mild F/U BMP will order KCL Code(s): E87.6 - HYPOKALEMIA
[2018-07-13 08:15] LABS: BASO % 0.6 % (0-2.0); EOS % 0.8 % (0-4.5); HEMATOCRIT 31.1 % (35.4-49); HEMOGLOBIN 10.8 GM/dL (11.7-16.9); LYMPH % 14.2 % (8-40); MCHC 34.7 g/dl (32.0-35.9); MEAN CELL VOLUME 103.7 fl (80-96); MEAN PLT VOLUME 7.7 fl (7.5-11.1); MONO % 14.6 % (3.8-10.2); NEUT % 69.8 % (42.8-82.8); PLATELET COUNT 142 K/MM3 (134-434); RDW 13.2 % (11.9-15.9); WHITE BLOOD COUNT 3.4 K/mm3 (4.0-10.0)
[2018-07-13 09:03] LABS: ALBUMIN 2.8 g/dl (3.4-5.0); ALK PHOS 168 U/L (45-117); ANION GAP 8 MMOL/L (8-16); BILIRUBIN,TOTAL 1.5 mg/dL (0.2-1); BLOOD UREA NITROGEN 6 mg/dL (7-18); CALCIUM 8.2 mg/dL (8.5-10.1); CHLORIDE 101 mmol/L (98-107); CO2 25 mmol/L (21-32); CREATININE 0.5 mg/dL (0.55-1.3); GLUCOSE,RANDOM 84 mg/dL (74-106); MAGNESIUM 1.9 mg/dL (1.8-2.4); PHOSPHOROUS 2.7 mg/dL (2.5-4.9); POTASSIUM 3.4 mmol/L (3.5-5.1); SGOT/AST 198 U/L (15-37); SGPT/ALT 101 U/L (13-61); SODIUM 134 mmol/L (136-145); TOT PROT 6.6 g/dl (6.4-8.2)
[2018-07-13 09:13] LABS: ALBUMIN 2.8 g/dl (3.4-5.0); BILIRUBIN,DIRECT 0.9 mg/dL (0.0-0.2); BILIRUBIN,TOTAL 1.4 mg/dL (0.2-1); TOT PROT 6.6 g/dl (6.4-8.2)
[2018-07-13] MEDS: THIAMINE HCL 100 MG TABLET (FP) PO SCH (10:43)
[2018-07-13] MEDS: ASPIRIN COATED 81 MG TABLET.EC PO SCH (10:43)
[2018-07-13] MEDS ORDERED: POTASSIUM CHLORIDE ORAL LIQUID 20 MEQ/15 ML PO ONE (14:47)
[2018-07-13 14:52] LABS: LIPASE 413 U/L (73-393)
--- NOTE | 2018-07-13 15:15 | EKG ---
Test Reason : Blood Pressure : / mmHG Vent. Rate : 073 BPM Atrial Rate : 073 BPM P-R Int : 156 ms QRS Dur : 082 ms QT Int : 388 ms P-R-T Axes : 003 000 011 degrees QTc Int : 427 ms NORMAL SINUS RHYTHM POSSIBLE ANTERIOR INFARCT (CITED ON OR BEFORE 10-MAY-2012) ABNORMAL ECG WHEN COMPARED WITH ECG OF 18-JUL-2014 11:45, VENT. RATE HAS DECREASED BY 38 BPM Confirmed by FINN HART MD ([id number]) on 07/13/2018 3:15:25 PM Referred By: Confirmed By:FINN HART MD
[2018-07-14] MEDS ORDERED: diazePAM 5 MG TABLET PO ONE (06:00)
[2018-07-14] MEDS: diazePAM 5 MG TABLET PO PRN (06:07)
[2018-07-14] MEDS: PANTOPRAZOLE SODIUM 80 MG in SODIUM CHLORIDE 100 ML IVPB SCH ×3 (06:09→16:22)
[2018-07-14 06:36] LABS: SERUM IRON SATURATION 29 % (15-55); TOTAL IRON BINDING CAPACITY 239 ug/dL (250-450); UIBC 169 ug/dL (111-343)
--- NOTE | 2018-07-14 07:16 | PN.GI ---
GI Progress Note Subjective: no new complaints feeling well ; no melena / brbr/ abd pain / n/v - Objective Vital Signs: Vital Signs Temperature 98.8 F 07/14/18 06:05 Pulse Rate 104 H 07/14/18 06:05 Respiratory Rate 20 07/14/18 06:05 Blood Pressure 136/78 07/14/18 06:05 O2 Sat by Pulse Oximetry (%) 96 07/13/18 23:00 Constitutional: Well Nourished, No Distress, Calm Eyes: Yes: WNL HENT: Yes: WNL Neck: Yes: WNL, Supple Cardiovascular: Yes: WNL, Regular Rate and Rhythm Respiratory: Yes: WNL, Regular, CTA Bilaterally Gastrointestinal Inspection: Yes: WNL ...Auscultate: Yes: Normoactive Bowel Sounds Extremities: Yes: WNL Edema: No Labs: CBC, BMP 07/13/18 07:00 07/13/18 07:00 INR, PTT INR 1.10 (0.83-1.09) H 07/12/18 08:17 Problem List - Problems (1) Alcoholic hepatitis Assessment/Plan: trend lft while hospitalized baby counselor etoh abstinence Code(s): K70.10 - ALCOHOLIC HEPATITIS WITHOUT ASCITES (2) GI bleeding Assessment/Plan: h/h stable ; trend daily while hospitalized ppi 40 mg po qd diet as tolerated npo midnight on Sunday for diagnostic egd on Sunday Code(s): K92.2 - GASTROINTESTINAL HEMORRHAGE, UNSPECIFIED Qualifiers: GI bleed type/associated pathology: unspecified gastrointestinal hemorrhage type Qualified Code(s): K92.2 - Gastrointestinal hemorrhage, unspecified (3) Left inguinal hernia Code(s): K40.90 - UNIL INGUINAL HERNIA, W/O OBST OR GANGR, NOT SPCF RECUR
--- NOTE | 2018-07-14 07:56 | PN ---
Teaching Attending Note Name of Resident: Anamaria Mckeon ATTENDING PHYSICIAN STATEMENT I saw and evaluated the patient. I reviewed the resident's note and discussed the case with the resident. I agree with the resident's findings and plan as documented. SUBJECTIVE: asymptomatic , no c/o melen aor abd pain. OBJECTIVE: Vital Signs Temperature 98.8 F 07/14/18 06:05 Pulse Rate 104 H 07/14/18 06:05 Respiratory Rate 20 07/14/18 06:05 Blood Pressure 136/78 07/14/18 06:05 O2 Sat by Pulse Oximetry (%) 96 07/13/18 23:00 HEENT: Mm moist, no anemia NECK: No JVD No Bruit, No Jaundice NECK: No JVD No bruit CHEST: CTA B/L CVS; s1S2 R ABD: Non tender , Left Inguinal Hernia EXT: no edema feet, no calf tenderness PERINATAL TECH: AOX3 non focal CBC, BMP 07/14/18 06:30 07/14/18 06:30 ASSESSMENT AND PLAN: 53 yrs old man a CAD s/p stent on ASA (04/2012)present to Ed transferred to [facility] Trop 4.[address] elevation) , ETOH abuse, ETOH induced liver disease, Upper GI bleed in 2014 s/p EGD and colonoscopy , EGD shows erosive gastritis present with C/O Left inguinal pain as he couldn't , reduced the hernia, came to Ed for evaluation, some how hernia reduced and remained reduced, patient also c/o melena started on Sunday, black stool but hard in consistency, last Bm was yesterday, currently not following with GI, cardiology or PCP, takes ASA 81 mg daily, stool occult blood +, patient H/H remained stable , no further back stool, schedule for EGD on Sunday, NPO after midnight. Problem List - Problems (1) GI bleeding Assessment/Plan: h/O erosive gastritis present with melena on ASA last episode 2 days ago evaluated by the GO, schedule for EGD cont PPI advanced to regular diet as patient is asymptomatic, schedule for EGD in am Code(s): K92.2 - GASTROINTESTINAL HEMORRHAGE, UNSPECIFIED Qualifiers: GI bleed type/associated pathology: unspecified gastrointestinal hemorrhage type Qualified Code(s): K92.2 - Gastrointestinal hemorrhage, unspecified (2) Alcoholic hepatitis Assessment/Plan: F/U serial LFTs and Hepatitis w/u Code(s): K70.10 - ALCOHOLIC HEPATITIS WITHOUT ASCITES (3) Stented coronary artery Assessment/Plan: not on any anti anginal EKG is unremarkable, unlimited ET will F/U clinically off ASA as present with GI bleed. Code(s): Z95.5 - PRESENCE OF CORONARY ANGIOPLASTY IMPLANT AND GRAFT (4) ETOH abuse Assessment/Plan: Observe for DTSm, cont thiamine, Folic acid , observe for DTs, Librium protocol. Code(s): F10.10 - ALCOHOL ABUSE, UNCOMPLICATED (5) Left inguinal hernia Assessment/Plan: non strangulated Code(s): K40.90 - UNIL INGUINAL HERNIA, W/O OBST OR GANGR, NOT SPCF RECUR (6) Pancreatitis Code(s): K85.90 - ACUTE PANCREATITIS WITHOUT NECROSIS OR INFECTION, UNSP
[2018-07-14 08:20] LABS: BASO % 0.4 % (0-2.0); EOS % 0.8 % (0-4.5); HEMATOCRIT 31.4 % (35.4-49); LYMPH % 14.7 % (8-40); MCH 36.5 pg (25.7-33.7); MEAN CELL VOLUME 104.5 fl (80-96); MEAN PLT VOLUME 7.8 fl (7.5-11.1); MONO % 17.7 % (3.8-10.2); NEUT % 66.4 % (42.8-82.8); PLATELET COUNT 139 K/MM3 (134-434); RDW 12.9 % (11.9-15.9); WHITE BLOOD COUNT 3.6 K/mm3 (4.0-10.0)
[2018-07-14 08:26] LABS: ALBUMIN 2.9 g/dl (3.4-5.0); ALK PHOS 159 U/L (45-117); ANION GAP 8 MMOL/L (8-16); BILIRUBIN,TOTAL 1.7 mg/dL (0.2-1); BLOOD UREA NITROGEN 7 mg/dL (7-18); CALCIUM 8.4 mg/dL (8.5-10.1); CHLORIDE 103 mmol/L (98-107); CO2 25 mmol/L (21-32); CREATININE 0.8 mg/dL (0.55-1.3); GLUCOSE,RANDOM 95 mg/dL (74-106); POTASSIUM 3.6 mmol/L (3.5-5.1); SGOT/AST 158 U/L (15-37); SGPT/ALT 88 U/L (13-61); SODIUM 136 mmol/L (136-145); TOT PROT 6.6 g/dl (6.4-8.2)
[2018-07-14] MEDS: THIAMINE HCL 100 MG TABLET (FP) PO SCH (09:32)
[2018-07-14] MEDS: ASPIRIN COATED 81 MG TABLET.EC PO SCH (09:33)
--- NOTE | 2018-07-14 15:11 | PN ---
Physical Exam: SUBJECTIVE: Patient seen and examined at bedside this morning. No acute events overnight. Patient reported 1 episode of walnut-size formed dark stool this morning. Otherwise denies fever, chills, headache, chest pain, SOB, abdominal pain, diarrhea, urinary symptoms. OBJECTIVE: Vital Signs Temperature 99.2 F 07/14/18 10:00 Pulse Rate 108 H 07/14/18 10:00 Respiratory Rate 18 07/14/18 10:00 Blood Pressure 149/94 07/14/18 10:00 O2 Sat by Pulse Oximetry (%) 96 07/13/18 23:00 GENERAL: The patient is awake, alert, and fully oriented, in no acute distress. HEAD: Normal with no signs of trauma. EYES: PERRLA, EOMI, sclera anicteric, conjunctiva clear. ENT: oropharynx clear without exudates, moist mucous membranes. NECK: Trachea midline, full range of motion, supple. LUNGS: Breath sounds equal, clear to auscultation bilaterally HEART: Regular rate and rhythm, S1, S2 without murmur, rub or gallop. ABDOMEN: Soft, nontender, nondistended, normoactive bowel sounds EXTREMITIES: 2+ pulses, warm, well-perfused, no edema. NEUROLOGICAL: Cranial nerves II through XII grossly intact. Normal speech, normal gait. PSYCH: Normal mood, normal affect. SKIN: Warm, dry, normal turgor, no rashes or lesions noted Laboratory Results - last 24 hr 07/13/18 07/13/18 07/14/18 07:00 07:00 06:30 WBC 3.6 L RBC 3.00 L Hgb 11.0 L Hct 31.4 L MCV 104.5 H MCH 36.5 H MCHC 35.0 RDW 12.9 Plt Count 139 MPV 7.8 Absolute Neuts (auto) 2.4 Neutrophils % 66.4 Lymphocytes % 14.7 Monocytes % 17.7 H Eosinophils % 0.8 Basophils % 0.4 Nucleated RBC % 0 Sodium Potassium Chloride Carbon Dioxide Anion Gap BUN Creatinine Creat Clearance w eGFR Random Glucose Calcium Iron 70 TIBC 239 L Iron Saturation 29 Total Bilirubin Direct Bilirubin AST ALT Alkaline Phosphatase Total Protein Albumin Hep C Ab Diagnostic <0.1 07/14/18 06:30 WBC RBC Hgb Hct MCV MCH MCHC RDW Plt Count MPV Absolute Neuts (auto) Neutrophils % Lymphocytes % Monocytes % Eosinophils % Basophils % Nucleated RBC % Sodium 136 Potassium 3.6 Chloride 103 Carbon Dioxide 25 Anion Gap 8 BUN 7 Creatinine 0.8 Creat Clearance w eGFR 101.12 Random Glucose 95 Calcium 8.4 L Iron TIBC Iron Saturation Total Bilirubin 1.7 H Direct Bilirubin 1.0 H AST 158 H ALT 88 H Alkaline Phosphatase 159 H Total Protein 6.6 Albumin 2.9 L Hep C Ab Diagnostic Active Medications Generic Name Dose Route Start Last Admin Trade Name Freq PRN Reason Stop Dose Admin Aspirin 81 mg 07/13/18 10:00 07/14/18 09:33 Ecotrin - PO 81 mg DAILY SHELLY Administration Diazepam 10 mg 07/12/18 14:34 07/14/18 06:07 Valium - PO 07/15/18 14:33 10 mg Q4H PRN Administration WITHDRAWAL(CONT SUBST) Pantoprazole Sodium 80 mg/ 100 mls @ 10 mls/hr 07/12/18 14:15 07/14/18 14:19 Sodium Chloride IVPB 10 mls/hr Q10H SHELLY Administration 8 MG/HR Thiamine HCl 100 mg 07/12/18 13:15 07/14/18 09:32 Vitamin B1 - PO 100 mg DAILY SHELLY Administration ASSESSMENT/PLAN: Patient is a 53 year old male with past medical history of CAD s/p PCI stenting , EtOH abuse, and prior GI bleed (2014 - antral gastritis and duodenitis 2/2 portal gastropathy), presented to the ED for LLQ abdominal pain and dark stools. #Melena likely 2/2 acute gastritis from EtOH use vs portal gastropathy vs PUD -H/H stable -Keep Hgb >8 given cardiac disease, transfuse PRN -Protonix 80mg IVP q10 -NPO after midnight for EGD tomorrow -GI (Dr. Mcdonald) consulted. #Transaminitis 2/2 chronic EtOH abuse: improving -158/88/159 -CTAP: Diffuse fatty infiltration of the liver. Mild thyromegaly. Left inguinal hernia containing a nonobstructed portion of the sigmoid colon. No acute pathology within the abdomen or pelvis. -RUQ US: fatty enlarged liver, moderately thickened gallbladder wall -Lipase elevated, but no signs of pancreatitis on CT scan -Avoid hepatotoxic agents -Will monitor LFTs #Macrocytic anemia: stable -likely 2/2 thiamine deficiency and chronic liver disease 2/2 EtOH abuse -Continue Thiamine 100mg daily -Folic acid level high -will continue to monitor #Thrombocytopenia, stable -likely 2/2 EtOH abuse -will continue to monitor #Left sided inguinal hernia -Hernia freely reducible at this time -Will need follow-up referral with Surgery upon discharge #CAD s/p PCI stenting -Continue ASA 81 mg daily #FEN -Not on any standing fluids -Electrolytes wnl, routine bmp monitoring -Cholesterol controlled diet -NPO after midnight for colonoscopy tomorrow #Prophylaxis -early ambulation, SCDs for now #Disposition -full code -med surg -for EGD tomorrow Visit type - Emergency Visit Emergency Visit: Yes ED Registration Date: 07/14/18 Care time: The patient presented to the Emergency Department on the above date and was hospitalized for further evaluation of their emergent condition. - New Patient This patient is new to me today: Yes Date on this admission: 07/14/18 - Critical Care Critical Care patient: No
[2018-07-15] MEDS: PANTOPRAZOLE SODIUM 80 MG in SODIUM CHLORIDE 100 ML IVPB SCH (02:31)
[2018-07-15 07:29] LABS: BASO % 0.5 % (0-2.0); EOS % 0.7 % (0-4.5); HEMATOCRIT 31.4 % (35.4-49); LYMPH % 14.9 % (8-40); MCH 36.2 pg (25.7-33.7); MCHC 34.8 g/dl (32.0-35.9); MEAN PLT VOLUME 7.8 fl (7.5-11.1); MONO % 16.7 % (3.8-10.2); NEUT % 67.2 % (42.8-82.8); PLATELET COUNT 141 K/MM3 (134-434); RBC 3.02 M/mm3 (4.00-5.60); WHITE BLOOD COUNT 3.7 K/mm3 (4.0-10.0)
[2018-07-15 07:36] LABS: ALBUMIN 2.7 g/dl (3.4-5.0); ALK PHOS 141 U/L (45-117); ANION GAP 6 MMOL/L (8-16); BILIRUBIN,DIRECT 0.9 mg/dL (0.0-0.2); BILIRUBIN,TOTAL 1.4 mg/dL (0.2-1); BLOOD UREA NITROGEN 6 mg/dL (7-18); CALCIUM 7.9 mg/dL (8.5-10.1); CHLORIDE 106 mmol/L (98-107); CO2 24 mmol/L (21-32); CREATININE 0.6 mg/dL (0.55-1.3); GLUCOSE,RANDOM 97 mg/dL (74-106); MAGNESIUM 1.9 mg/dL (1.8-2.4); PHOSPHOROUS 2.4 mg/dL (2.5-4.9); POTASSIUM 3.6 mmol/L (3.5-5.1); SGOT/AST 126 U/L (15-37); SGPT/ALT 78 U/L (13-61); SODIUM 135 mmol/L (136-145); TOT PROT 6.5 g/dl (6.4-8.2)
[2018-07-15] MEDS: ASPIRIN COATED 81 MG TABLET.EC PO SCH (09:48)
[2018-07-15] MEDS: THIAMINE HCL 100 MG TABLET (FP) PO SCH (09:48)
[2018-07-15] MEDS ORDERED: FOLIC ACID 1 MG TABLET (FP) PO SCH (10:00)
[2018-07-15] MEDS ORDERED: CEFAZOLIN 1 GM/D5W 1 GM/50 ML BAG ONE (10:58)
--- NOTE | 2018-07-15 11:41 | PN ---
Progress Note (short form) - Note Progress Note: GI Procedure NOte: Please see EGD report. A large duodenal bulb ulcer and several small gastric ulcers were found but there was no active bleeding found. Marquise was advised to avoid both NSAIDs and alcohol. I gave him my business card to arrange followup in my office. Marquise can be discharged on pantoprazole 40mg BID. LFTs are normalizing off alcohol. I emphasized the need to abstain from alcohol and informed him of his alcoholic hepatitis . Problem List - Problems (1) Alcoholic hepatitis Code(s): K70.10 - ALCOHOLIC HEPATITIS WITHOUT ASCITES (2) Diverticulosis Code(s): K57.90 - DVRTCLOS OF INTEST, PART UNSP, W/O PERF OR ABSCESS W/O BLEED (3) Stented coronary artery Code(s): Z95.5 - PRESENCE OF CORONARY ANGIOPLASTY IMPLANT AND GRAFT (4) History of myocardial infarction Code(s): I25.2 - OLD MYOCARDIAL INFARCTION (5) Left inguinal hernia Code(s): K40.90 - UNIL INGUINAL HERNIA, W/O OBST OR GANGR, NOT SPCF RECUR (6) GI bleeding Code(s): K92.2 - GASTROINTESTINAL HEMORRHAGE, UNSPECIFIED Qualifiers: GI bleed type/associated pathology: unspecified gastrointestinal hemorrhage type Qualified Code(s): K92.2 - Gastrointestinal hemorrhage, unspecified (7) Abnormal LFTs Code(s): R79.89 - OTHER SPECIFIED ABNORMAL FINDINGS OF BLOOD CHEMISTRY (8) ETOH abuse Code(s): F10.10 - ALCOHOL ABUSE, UNCOMPLICATED
[2018-07-15] MEDS: MAG HYDROX/AL HYDROX/SIMETH 30 ML UNIT-DOSE CUP PO SCH ×2 (13:09→17:49)
[2018-07-15 16:13] LABS: TRANSGLUTAMINASE IGA < 2 U/mL (0-3); TRANSGLUTAMINASE IGG < 2 U/mL (0-5)
--- NOTE | 2018-07-15 16:20 | PN ---
Physical Exam: SUBJECTIVE: Patient seen and examined at bedside. Resting comfortably . No acute events. OBJECTIVE: Vital Signs Period Temp Pulse Resp BP Sys/Bullard Pulse Ox Last 24 Hr 98.1 F-100.7 F 87-111 19-20 122-150/89-99 96-100 GENERAL: The patient is awake, alert, and fully oriented, in no acute distress. HEAD: Normal with no signs of trauma. EYES: PERRL, extraocular movements intact, sclera anicteric, conjunctiva clear. No ptosis. ENT: Ears normal, nares patent, oropharynx clear without exudates, moist mucous membranes. NECK: Trachea midline, full range of motion, supple. LUNGS: Breath sounds equal, clear to auscultation bilaterally, no wheezes, no crackles, no accessory muscle use. HEART: Regular rate and rhythm, S1, S2 without murmur, rub or gallop. ABDOMEN: Soft, nontender, nondistended, normoactive bowel sounds, no guarding, no rebound, no hepatosplenomegaly, no masses. EXTREMITIES: 2+ pulses, warm, well-perfused, no edema. NEUROLOGICAL: Cranial nerves II through XII grossly intact. Normal speech, gait not observed. PSYCH: Normal mood, normal affect. SKIN: Warm, dry, normal turgor, no rashes or lesions noted Laboratory Results - last 24 hr 07/13/18 07/15/18 07/15/18 07:00 06:40 06:40 WBC 3.7 L RBC 3.02 L Hgb 11.0 L Hct 31.4 L MCV 104.0 H MCH 36.2 H MCHC 34.8 RDW 13.0 Plt Count 141 MPV 7.8 Absolute Neuts (auto) 2.5 Neutrophils % 67.2 Lymphocytes % 14.9 Monocytes % 16.7 H Eosinophils % 0.7 Basophils % 0.5 Nucleated RBC % 0 Sodium 135 L Potassium 3.6 Chloride 106 Carbon Dioxide 24 Anion Gap 6 L BUN 6 L Creatinine 0.6 Creat Clearance w eGFR 140.93 Random Glucose 97 Calcium 7.9 L Phosphorus 2.4 L Magnesium 1.9 Total Bilirubin 1.4 H Direct Bilirubin 0.9 H AST 126 H ALT 78 H Alkaline Phosphatase 141 H Total Protein 6.5 Albumin 2.7 L Smooth Musc &GROUP DIRECTOR EXPERIENCE Intrp 17 Active Medications Generic Name Dose Route Start Last Admin Trade Name Freq PRN Reason Stop Dose Admin Al Hydroxide/Mg Hydroxide 30 ml 07/15/18 11:45 07/15/18 13:09 Mylanta Oral Suspension - PO 30 ml Q6H SHELLY Administration Aspirin 81 mg 07/13/18 10:00 07/15/18 09:48 Ecotrin - PO Not Given DAILY SHELLY Diazepam 10 mg 07/12/18 14:34 07/14/18 06:07 Valium - PO 07/15/18 14:33 10 mg Q4H PRN Administration WITHDRAWAL(CONT SUBST) Pantoprazole Sodium 40 mg 07/15/18 22:00 Protonix - PO BID SHELLY Thiamine HCl 100 mg 07/12/18 13:15 07/15/18 09:48 Vitamin B1 - PO Not Given DAILY SHELLY ASSESSMENT/PLAN: Patient is a 53 year old male with past medical history of CAD s/p PCI stenting , EtOH abuse, and prior GI bleed (2014 - antral gastritis and duodenitis 2/2 portal gastropathy), presented to the ED for LLQ abdominal pain and dark stools. # Acute blood loss anemia 2/2 acute gastritis from EtOH use vs portal gastropathy vs PUD - s/p EGD, bx by GI >>>> Duodenal ulcer -H/H stable -Protonix 80mg IVP >> switched to PO - Counselled re: alcohol abstinence #Transaminitis 2/2 chronic EtOH abuse: improving -158/88/159 -Lipase elevated, but no signs of pancreatitis on CT scan -Avoid hepatotoxic agents #Macrocytic anemia: stable -likely 2/2 thiamine deficiency and chronic liver disease 2/2 EtOH abuse -Continue Thiamine 100mg daily #Thrombocytopenia, stable -likely 2/2 EtOH abuse/ CLD #Left sided inguinal hernia -Hernia freely reducible at this time -Will need follow-up referral with Surgery upon discharge #CAD s/p PCI stenting -Continue ASA 81 mg daily #FEN -Not on any standing fluids -Electrolytes wnl, routine bmp monitoring -Cholesterol controlled diet #Prophylaxis -early ambulation, SCDs for now #Disposition -full code d/c planning today. Plan d/w the compensation intern. Visit type - Emergency Visit Emergency Visit: Yes ED Registration Date: 07/14/18 Care time: The patient presented to the Emergency Department on the above date and was hospitalized for further evaluation of their emergent condition. - New Patient This patient is new to me today: Yes Date on this admission: 07/15/18 - Critical Care Critical Care patient: No - Discharge Referral Referred to [facility] Med P.C.: No
--- NOTE | 2018-07-15 16:38 | DS ---
Physical Exam: SUBJECTIVE: Patient seen and examined at bedside this morning. No acute events overnight. PAtient has no complaints. OBJECTIVE: Vital Signs Temperature 99.3 F 07/15/18 13:00 Pulse Rate 111 H 07/15/18 13:00 Respiratory Rate 20 07/15/18 13:00 Blood Pressure 135/90 07/15/18 13:00 O2 Sat by Pulse Oximetry (%) 96 07/15/18 15:00 PHYSICAL EXAM GENERAL: The patient is awake, alert, and fully oriented, in no acute distress. HEAD: Normal with no signs of trauma. EYES: PERRLA, EOMI, sclera anicteric, conjunctiva clear. ENT: oropharynx clear without exudates, moist mucous membranes. NECK: Trachea midline, full range of motion, supple. LUNGS: Breath sounds equal, clear to auscultation bilaterally HEART: Regular rate and rhythm, S1, S2 without murmur, rub or gallop. ABDOMEN: Soft, nontender, nondistended, normoactive bowel sounds EXTREMITIES: 2+ pulses, warm, well-perfused, no edema. NEUROLOGICAL: Cranial nerves II through XII grossly intact. Normal speech, normal gait. PSYCH: Normal mood, normal affect. SKIN: Warm, dry, normal turgor, no rashes or lesions noted LABS Laboratory Results - last 24 hr 07/13/18 07/15/18 07/15/18 07:00 06:40 06:40 WBC 3.7 L RBC 3.02 L Hgb 11.0 L Hct 31.4 L MCV 104.0 H MCH 36.2 H MCHC 34.8 RDW 13.0 Plt Count 141 MPV 7.8 Absolute Neuts (auto) 2.5 Neutrophils % 67.2 Lymphocytes % 14.9 Monocytes % 16.7 H Eosinophils % 0.7 Basophils % 0.5 Nucleated RBC % 0 Sodium 135 L Potassium 3.6 Chloride 106 Carbon Dioxide 24 Anion Gap 6 L BUN 6 L Creatinine 0.6 Creat Clearance w eGFR 140.93 Random Glucose 97 Calcium 7.9 L Phosphorus 2.4 L Magnesium 1.9 Total Bilirubin 1.4 H Direct Bilirubin 0.9 H AST 126 H ALT 78 H Alkaline Phosphatase 141 H Total Protein 6.5 Albumin 2.7 L Smooth Musc &TELEPHONE SOLICITOR SUPERVISOR Intrp 17 Tiss Transglutamin IgG < 2 Tiss Transglutamin IgA < 2 -CTAP: Diffuse fatty infiltration of the liver. Mild thyromegaly. Left inguinal hernia containing a nonobstructed portion of the sigmoid colon. No acute pathology within the abdomen or pelvis. -RUQ US: fatty enlarged liver, moderately thickened gallbladder wall HOSPITAL COURSE: Date of Admission:07/14/18 Date of Discharge: 07/15/18 Patient is a 53 year old male with past medical history of CAD s/p PCI stenting , EtOH abuse, and prior GI bleed (2015 - antral gastritis and duodenitis 2/2 portal gastropathy), presented to the ED for LLQ abdominal pain and dark stools. Upon admission, patient was noted to have elevated LFTs. CT scan was done which showed diffuse fatty infiltration of the liver. GI was consulted. EGD was done which revealed multiple gastric and duodenal nonbleeding ulcers. Patient was discharged with instructions to repeat labs in 1 week and follow up with PCP. He was to continue Protonix 40mg BID and follow up with GI to discuss EGD biopsy results. Patient was also referred to surgery for further management of left inguinal hernia. Minutes to complete discharge: 37 Discharge Summary Reason For Visit: GASTROINTESTINAL HEMORRHAGE Current Active Problems Left inguinal hernia (Acute) Alcoholic hepatitis (Chronic) Diverticulosis (Chronic) History of myocardial infarction (Chronic) Stented coronary artery (Chronic) Condition: Improved - Instructions Diet, Activity, Other Instructions: Your visit You were admitted to the hospital because you had bloody stools. You were evaluated by the manager army. Endoscopy was done which showed you had ulcers on your stomach. We will give you a script for a repeat blood work in 1 week (CBC, CMP). Please bring in the results to your appointments with your primary doctor. Care Avoid NSAIDs such as Ibuprofen or Motrin. It is important that you completely stop drinking alcohol. Continuing to drink alcohol can lead to worsening symptoms and healthy problems including liver failure and even . Eat a healthy diet and drink plenty of water Medications Please take the following medications as prescribed. 1. Protonix 40mg twice a day. Follow up Please follow up with your primary care physician. Please call the medical claims assistant clinic at [phone] to schedule an appointment with Dr. Watkins. Please follow up with the manager army (Dr. Mcdonald) within 1 week. Please call his office to schedule an appointment. Please follow up with surgery (Dr. Ramirez) regarding further management of your hernia. Please call the office to schedule an appointment. Additional info Call 911 or go to the ED if with any worsening fever, chills, headache, dizziness, chest pain, shortness of breath, abdominal pain, bloody stools or any new concerns noted. [place] [facility] [place] [facility] [place]] Marco Ramirez MD [Staff Physician] - Elsy Mcdonald MD [Staff Physician] - Disposition: HOME - Home Medications Comprehensive Discharge Medication List: Ambulatory Orders Aspirin Coated [Ecotrin -] 81 mg PO DAILY #30 tablet.ec 07/20/14 Miscellaneous Medical Supply [Outpatient Order] 1 each ASDIR #1 misc Pantoprazole Sodium [Protonix -] 40 mg PO BID #60 tablet.ec 07/15/18 This patient is new to me today: No Emergency Visit: Yes ED Registration Date: 07/14/18 Care time: The patient presented to the Emergency Department on the above date and was hospitalized for further evaluation of their emergent condition. Critical Care patient: No - Discharge Referral Referred to [facility] Med P.C.: No
[2018-07-15 17:56] VITALS: BP 150/94; PULSE 100; TEMP 100.1
[2018-07-15] MEDS ORDERED: PANTOPRAZOLE 40 MG TABLET (FP) PO SCH (22:00)
--- NOTE | 2018-07-16 13:29 | PATH ---
Surgical Pathology Report Patient Name: GARFIELD DELGADO [facility]. Rec. #: [id number] /Age/Gender: 1965 (Age: 53) / M Account: [id number] Location: [address] [place] [address] Taken: 07/15/2018 Received: 07/15/2018 Reported: 07/16/2018 Physicians: Prosper Leary M.D. Specimen(s) Received GASTRIC ANTRUM Clinical History GI bleed Postoperative diagnosis: Biopsy gastric antrum Final Diagnosis GASTRIC ANTRUM, BIOPSY: GASTRIC MUCOSA WITH FOCAL ACUTE GASTRITIS. REACTIVE GASTROPATHY PRESENT. IMMUNOSTAIN FOR H. PYLORI IS NEGATIVE. NEGATIVE FOR INTESTINAL METAPLASIA. Electronically Signed Carmelita Laughlin M.D. Gross Description Received in formalin, labeled "biopsy gastric antrum" are 2 zhao, irregular portions of soft tissue measuring 0.2 and 0.6 cm. in greatest dimension. The specimens are submitted in toto in one cassette. /[facility]
[2018-07-17 04:11] LABS: ALPHA 2 MACROGLOBULINS,QN 187 mg/dL (110-276); ALT(SGPT)P5P 96 IU/L (0-55); CHOLESTEROL TOTAL 169 mg/dL (100-199); FIBROSIS SCORE- 0.81 (0.00-0.21); GGT= 1535 IU/L (0-65); GLUCOSE SERUM 90 mg/dL (65-99); HEIGHT. 72 in (.); WEIGHT. 192 LBS (.)
== END 2018-07-15 18:39 | disposition home or self-care (01) | DRG 241 ==
LOC: JER 06:44 → UNDOADMOB 12:23 → INTOOBSV 12:23 → JERBED 12:23 → OBSVTOIN 12:50 → INTOOBSV 12:50 → JERBED 12:50 → J6S 14:09 → JERBED 14:09 → J6S 14:09 → OBSVTOIN 07-14 15:11
PROVIDERS: ADMIT Internal Medicine; ATTEND Internal Medicine
PROC: 0DB98ZX Excision of Duodenum, Via Natural or Artificial Opening Endoscopic, Diagnostic (ICD-10-PCS; principal; 2018-07-15 11:02)
PROC: 0DB68ZX Excision of Stomach, Via Natural or Artificial Opening Endoscopic, Diagnostic (ICD-10-PCS; 2018-07-15 11:02)
DX: K26.4 Chronic or unspecified duodenal ulcer with hemorrhage (principal); I25.10 Atherosclerotic heart disease of native coronary artery without angina pectoris; D62 Acute posthemorrhagic anemia; D64.9 Anemia, unspecified; K40.90 Unilateral inguinal hernia, without obstruction or gangrene, not specified as recurrent; D69.6 Thrombocytopenia, unspecified; I10 Essential (primary) hypertension; I25.2 Old myocardial infarction; K29.20 Alcoholic gastritis without bleeding; K70.10 Alcoholic hepatitis without ascites; K57.90 Diverticulosis of intestine, part unspecified, without perforation or abscess without bleeding; R79.89 Other specified abnormal findings of blood chemistry; F10.10 Alcohol abuse, uncomplicated; K76.6 Portal hypertension; K31.89 Other diseases of stomach and duodenum; K85.90 Acute pancreatitis without necrosis or infection, unspecified; E87.6 Hypokalemia; K76.0 Fatty (change of) liver, not elsewhere classified; Z95.5 Presence of coronary angioplasty implant and graft
CPT/HCPCS: 36415; 71045-TC-FY; 74177-TC; 76705-TC; 80048; 80053; 80076; 82140; 82272; 82607; 82728; 82746; 83516; 83540; 83550; 83690; 83735; 84100; 84484; 85025; 85027; 85044; 85610; 85730; 86038; 86803; 86850; 86900; 86901; 88305-TC; 93005; 93010; 99284-25; G0378; J7030

== ENCOUNTER 2018-11-06 06:53 | Day surgery (SDC) | payer OTHER ==
--- NOTE | 2018-10-30 09:53 | HP ---
DATE OF ADMISSION: 11/06/2018 DATE OF DICTATION: 10/22/2018 BRIEF HISTORY: This is a 53-year-old gentleman who I had initially seen in July 2018, when he complained of having a bulge in the left groin. He has had this for over 1 year at that time and the bulge has now significantly gotten larger. He states that the bulge, when he first noticed, would go back but now it does not go back. He has had no change in bowel habits. No nausea or vomiting. He has pain in the area when he does heavy lifting type activities or bending or even Valsalva maneuvers. PAST MEDICAL HISTORY: He has a history of coronary artery disease and hypertension. He had an TN in 2013 with stent placements at that time. The patient has a history of erectile dysfunction. PAST SURGICAL HISTORY: As above. ALLERGIES: None. SOCIAL HISTORY: He does not smoke nor drink. MEDICATIONS: He takes a baby aspirin. PHYSICAL EXAMINATION: Patient examined in erect and supine position. He has no obvious hernia in the right groin. There is some laxity noted. The right scrotum and testicle is within normal limits. On the left, he has a very large inguinal hernia with extension into the proximal scrotum. The hernia is not reducible in the supine position and it is slightly tender on exam trying to be reduced. Left scrotum and testicle is within normal limits. IMPRESSION/PLAN: Chronically incarcerated left inguinoscrotal hernia: This is a 53-year-old gentleman who has become fairly symptomatic from this chronically incarcerated left inguinoscrotal hernia. At this point, I would recommend he undergo a repair. We have discussed the pros and cons of various surgical approaches. I will attempt a laparoscopic approach and repair for him. At the time of laparoscopy, if I can complete the left side, I will examine the right side as well, and if a hernia is noted, it will be repaired at the same setting. If hernia is not seen, a piece of mesh will be placed to allow reinforcement of the inguinal floor. Due to the large nature of the hernia on the left and its chronically incarcerated condition, he is more likely to develop a seroma, which may or may not resolve. Patient understands this and still wants to proceed. EVA RIVAS M.D. [id number]
[2018-11-04 09:31] VITALS: BMI 24.7
[~2018-11-06 06:53] MED LIST: ceFAZolin SODIUM 1 GM VIAL IVPB ONE
[2018-11-06] MEDS ORDERED: TAMSULOSIN HCL 0.4 MG CAP ONE (07:11)
[2018-11-06] MEDS ORDERED: BUPIVACAINE HCL/PF 0.5% (5 MG/ML) 30 ML VIAL IJ ONE (09:58)
[2018-11-06] MEDS ORDERED: MIDAZOLAM HCL 2 MG/2 ML SINGLE DOSE VIAL ONE (09:58)
[2018-11-06] MEDS ORDERED: fentaNYL CITRATE 250 MCG/5 ML VIAL ONE (10:22)
[2018-11-06] MEDS ORDERED: LIDOCAINE HCL/PF 2% SDV 5ML VIAL ONE (10:23)
[2018-11-06] MEDS ORDERED: PROPOFOL 20 ML ONE ×2 (10:23)
[2018-11-06] MEDS ORDERED: ceFAZolin SODIUM 1 GM VIAL IVPB ONE (10:34)
[2018-11-06] MEDS ORDERED: PHENYLEPHRINE HCL 10 MG/1 ML SINGLE DOSE VIAL ONE (10:38)
[2018-11-06] MEDS ORDERED: SODIUM CHLORIDE 0.9% P/F 10 ML VIAL IJ ONE (10:38)
[2018-11-06] MEDS ORDERED: ePHEDrine SULFATE 50 MG/1 ML AMPULE ONE (11:06)
[2018-11-06] MEDS ORDERED: ONDANSETRON 4 MG/2 ML VIAL ONE (11:16)
[2018-11-06] MEDS ORDERED: ceFAZolin SODIUM 1 GM VIAL ONE (11:16)
[2018-11-06] MEDS ORDERED: GLYCOPYRROLATE 0.2 MG/1 ML VIAL ONE (11:16)
[2018-11-06] MEDS ORDERED: DEXAMETHASONE SOD PHOSPHATE 4 MG/1 ML VIAL ONE (11:16)
[2018-11-06] MEDS ORDERED: KETOROLAC TROMETHAMINE 30 MG/1 ML VIAL ONE (11:16)
[2018-11-06] MEDS ORDERED: NEOSTIGMINE METHYLSULFATE 0.5 MG/ML - 10 ML MDV ONE (11:17)
[2018-11-06] MEDS ORDERED: ROCURONIUM BROMIDE 50 MG/5 ML SYRINGE ONE (11:17)
[2018-11-06] MEDS ORDERED: oxyCODONE HCL 5 MG TABLET PO PRN ×2 (12:19)
[2018-11-06] MEDS ORDERED: ONDANSETRON 4 MG/2 ML VIAL IVPUSH PRN (12:19)
[2018-11-06] MEDS ORDERED: PROMETHAZINE HCL 25 MG/1 ML VIAL IVPB PRN (12:19)
[2018-11-06] MEDS ORDERED: ACETAMINOPHEN 325 MG TABLET (FP) PO PRN (12:19)
[2018-11-06] MEDS ORDERED: oxyCODONE HCL 5 MG TABLET ONE (14:45)
[2018-11-06 15:36] VITALS: BP 140/82; TEMP 98.7
[2018-11-06 15:40] VITALS: PULSE 94
--- NOTE | 2018-11-07 10:47 | OP ---
DATE OF OPERATION: 11/06/2018 PREOPERATIVE DIAGNOSIS: Left inguinal scrotal hernia (incarcerated chronically) . POSTOPERATIVE DIAGNOSIS: Left inguinal scrotal hernia (incarcerated chronically ), indirect. PROCEDURE: Open repair of incarcerated left inguinal hernia with mesh, 8-cm intermediate wound closure. SURGEON: Boaz Rivas MD RUNNER MAN: Homar Adam MD ANESTHESIA: ALMA Rondon (general). ESTIMATED BLOOD LOSS: Minimal. SPECIMEN: Hernia sac and lipoma. INDICATION FOR PROCEDURE: This is a 53-year-old gentleman with a longstanding history of having a left inguinal hernia that has gotten very large and now drops into his scrotum. The hernia caused him discomfort, and he wished to have this repaired. Patient identified and appropriately positioned on the operating room table. After placement of general anesthesia, the left groin prepped and draped in the usual sterile fashion with ChloraPrep. An 8-cm left inguinal incision was made, deepened through the subcutaneous tissue, carried to Pk's, divided sharply. The fascia of the external oblique opened in the direction of its fibers through the external ring. Ilioinguinal nerve identified, retracted laterally. The cord structures were subsequently isolated at the pubic tubercle, and associated with this was a large indirect inguinal hernia sac. The sac was off the cord structures with blunt dissection down to the level of the internal ring. Thick sac suture ligated at the level of the internal ring and excised. A moderate-size cord lipoma was taken in similar fashion. Next, the inguinal floor opened, and a Marlex mesh plug placed into the inguinal floor and fanned out in all directions and then anchored with interrupted 0 Prolene sutures. The inguinal floor subsequently then reconstructed in 2 layers with a running 2-0 Prolene suture. The inguinal floor was mildly attenuated, and therefore, a piece of ProGrip was cut to the appropriate size, placed on the inguinal floor as reinforcement. The mesh was keyholed to allow passage of the cord structures through the internal ring. Next, the fascia of the external oblique reapproximated with a running 3-0 Vicryl suture. The inguinal nerve and cord structures placed back to its anatomic position prior to this closure. Pk's reapproximated with interrupted inverted 3-0 Vicryl suture and the skin closed with 4-0 subcuticular Biosyn. Length of the incision 8 cm. At the conclusion of this case, sponge and needle counts correct. ATTESTATION: A brief operative note handwritten on the preprinted form. [facility] queried prior to giving any narcotics. BOAZ RIVAS M.D. [id number] MTDD
--- NOTE | 2018-11-11 16:40 | PATH ---
Surgical Pathology Report Patient Name: GARFIELD DELGADO [facility]. Rec. #: [id number] /Age/Gender: 1965 (Age: 53) / M Account: [id number] Location: [facility] Taken: 11/06/2018 Received: 11/06/2018 Reported: 11/11/2018 Physicians: Boaz Mishra Specimen(s) Received HERNIA SAC LEFT INGUINAL HERNIA AND CORD LIPOMA Clinical History Left incarcerated inguinal hernia Final Diagnosis HERNIA SAC AND CORD LIPOMA, LEFT INGUINAL, REPAIR: HERNIA SAC AND LIPOMA. Electronically Signed Radha Gatica M.D. Gross Description Received in formalin, labeled "hernia sac inguinal hernia and cord lipoma" is a 4 x 4 x 0.1 cm portion of sac-like zhao, membranous tissue and 4 x 1.5 x 0.6 cm portion of yellow homogeneous adipose tissue. The specimen is sectioned and loss prevention representative sections are submitted in one cassette. (OWEN)
== END 2018-11-06 15:42 | disposition home or self-care (01) ==
LOC: FASU 06:53
PROVIDERS: ATTEND Surgery
PROC: 0YU60JZ Supplement Left Inguinal Region with Synthetic Substitute, Open Approach (ICD-10-PCS; principal; 2018-11-06 09:00)
DX: K40.30 Unilateral inguinal hernia, with obstruction, without gangrene, not specified as recurrent (principal); I10 Essential (primary) hypertension; I25.10 Atherosclerotic heart disease of native coronary artery without angina pectoris; I25.2 Old myocardial infarction; Z95.5 Presence of coronary angioplasty implant and graft; N52.9 Male erectile dysfunction, unspecified
CPT/HCPCS: 88302-TC; 94760